=== PATIENT | female | born 1990 | race Hispanic/Latino ===

== ENCOUNTER 2018-11-29 21:54 | Emergency (ER) | payer SELFPAY ==
[2018-11-29 22:25] VITALS: O2SAT 100
--- NOTE | 2018-11-29 22:48 | C.PDOC ---
History Of Present Illness 28 year old female presents to the ED c/o headache associated with nausea, vomit and neck pain for the past 2 days. Patient states she sustained a mechanical fall, she was in a store slipped and fell backwards hitting her head on the ground. Patient thinks she had LOC, but there was nit witness of her fall. Patient states she was able to get up with no help, reports she vomited shortly after. Patient states she has bee vomiting for the past 2 days, headache worsened today. Patient also reports some neck pain with flexion and extension. Patient denies visual changes, diarrhea, abdominal pain, rash, weakness, numbness. - HPI Time Seen by Provider: 11/29/18 22:33 Chief Complaint (Nursing): Trauma History Per: Patient History/Exam Limitations: no limitations Onset/Duration Of Symptoms: Days (2) Injury Occurred (Timing): Days Ago: (2) Location Of Injury: Posterior: Head, Neck Associated Symptoms: LOC (questionable ) Recent travel outside of the [place]: No Additional History Per: Patient - Fall Fall:Prior To Injury: Slipped Past Medical History Reviewed: Historical Data, Nursing Documentation, Vital Signs Vital Signs: Last Vital Signs Temp 98.7 F 11/29/18 22:22 Pulse 71 11/29/18 22:22 Resp 18 11/29/18 22:22 BP 118/75 11/29/18 22:22 Pulse Ox 100 11/29/18 22:22 - Medical History PMH: No Chronic Diseases Surgical History: No Surg Hx Family History: States: Unknown Family Hx - Social History Hx Alcohol Use: Yes Hx Substance Use: No - Immunization History Hx Tetanus Toxoid Vaccination: No Hx Influenza Vaccination: No Hx Pneumococcal Vaccination: No Review Of Systems Constitutional: Negative for: Fever, Chills Eyes: Negative for: Vision Change Cardiovascular: Negative for: Chest Pain, Palpitations Respiratory: Negative for: Shortness of Breath Gastrointestinal: Positive for: Nausea, Vomiting. Negative for: Abdominal Pain Musculoskeletal: Positive for: Neck Pain Skin: Negative for: Rash Neurological: Positive for: Headache. Negative for: Weakness, Numbness, Dizziness Physical Exam - Physical Exam Appears: Non-toxic, No Acute Distress Skin: Normal Color, Warm, Dry Head: Atraumatic, Normacephalic, Other (no palpable deformity of the skull) Eye(s): bilateral: Normal Inspection, PERRL, EOMI Oral Mucosa: Moist Neck: Normal ROM, No Midline Cervical Tenderness, Paracervical Tenderness, Supple Chest: Symmetrical Cardiovascular: Rhythm Regular Respiratory: Normal Breath Sounds, No Rales, No Rhonchi, No Wheezing Gastrointestinal/Abdominal: Soft, No Tenderness, No Guarding, No Rebound Back: No Vertebral Tenderness Extremity: Normal ROM, No Tenderness, No Swelling Neurological/Psych: Oriented x3, Normal Speech, Normal Cognition, Normal Cranial Nerves Gait: Steady ED Course And Treatment O2 Sat by Pulse Oximetry: 100 (ON RA) Pulse Ox Interpretation: Normal - CT Scan/US CT head Other Rad Studies (CT/US): Read By Radiologist, Radiology Report Reviewed CT/US Interpretation: EXAM: CT Head without Intravenous Contrast. CLINICAL HISTORY: Trauma. TECHNIQUE: Axial computed tomography images of the head/brain without intravenous contrast. 0.00 mGy-cm. COMPARISON: None provided. FINDINGS: BRAIN. No acute intraparenchymal hemorrhage. No mass lesion. No CT evidence for acute territorial infarct. No midline shift or extra- axial collections. VENTRICLES: No hydrocephalus. ORBITS: The orbits are unremarkable. SINUSES AND MASTOIDS: The paranasal sinuses and mastoid air cells are clear. BONES: No fracture. SOFT TISSUES: Unremarkable. IMPRESSION: No acute intracranial abnormality. . Electronically signed on Nov 30, 2018 12:17:34 AM EDT by: Juve Gomez M.D., Certified by LISA QURESHI, Neuroradiology. CT c-spine Other Rad Studies (CT/US): Read By Radiologist, Radiology Report Reviewed CT/US Interpretation: EXAM: CT Cervical Spine Without IV contrast. CLINICAL HISTORY: Trauma. TECHNIQUE: Axial computed tomography images of the cervical spine without intravenous contrast. Sagittal and coronal reformatted images were generated. COMPARISON: None provided. FINDINGS: ALIGNMENT: Bony alignment is anatomic. DEGENERATIVE CHANGES: No significant canal stenosis or neural foraminal narrowing evident. SOFT TISSUES: The prevertebral soft tissues are within normal limits. BONES: No acute fracture or aggressive appearing osseous lesion. IMPRESSION: No acute cervical spine abnormality. . Electronically signed on Nov 30, 2018 12:17:41 AM EDT by: Juve Gomez M.D., Certified by KIERA MSVira, Neuroradiology Medical Decision Making Medical Decision Making: Impression: Work up for head and neck trauma. Plan: * CT head * CT C-spine * Zofran 4 mg IVP * Labs 00:44- Patient reports improvement after medications were given. Patient was advised to follow up with Neurologist in one week if symptoms have not improved. Return precautions were discussed, advised to take Tylenol or Motrin for pain relief. Patient was also given prescription for Zofran. Disposition - Disposition Referrals: Bharat Cheung MD [Staff Provider] - Disposition: HOME/ ROUTINE Disposition Time: 00:43 Condition: IMPROVED Prescriptions: Ondansetron ODT [Zofran ODT] 4 mg PO Q6 #20 odt Instructions: Concussion, Adult (DC), Head Injury Observation (DC) Forms: [employer] (Andorran) Print Language: [place] CITIZEN - Clinical Impression Clinical Impression: Concussion injury of brain - Scribe Statement The provider has reviewed the documentation as recorded by the Scribe Jesse Campbell All medical record entries made by the Scribe were at my direction and pers onally dictated by me. I have reviewed the chart and agree that the record accurately reflects my personal performance of the history, physical exam, medical decision making, and the department course for this patient. I have also personally directed, reviewed, and agree with the discharge instructions and disposition.
[2018-11-30 00:35] VITALS: BP 114/74; PULSE 66; RESP 17; TEMP 98.6
--- NOTE | 2018-11-30 07:54 | CT ---
Date of service: 11/29/2018 PROCEDURE: CT HEAD WITHOUT CONTRAST. HISTORY: head trauma COMPARISON: None available. TECHNIQUE: Axial computed tomography images were obtained through the head/brain without intravenous contrast. Radiation dose: Total exam DLP = 1045.49 mGy-cm. This CT exam was performed using one or more of the following dose reduction techniques: Automated exposure control, adjustment of the mA and/or kV according to patient size, and/or use of iterative reconstruction technique. FINDINGS: HEMORRHAGE: No intracranial hemorrhage. BRAIN: No mass effect or edema. No atrophy or chronic microvascular ischemic changes. VENTRICLES: Unremarkable. No hydrocephalus. CALVARIUM: Unremarkable. PARANASAL SINUSES: Unremarkable as visualized. No significant inflammatory changes. MASTOID AIR CELLS: Unremarkable as visualized. No inflammatory changes. OTHER FINDINGS: None. IMPRESSION: No acute intracranial abnormality. If symptoms persists, consider correlation with MRI. A preliminary report was generated at 12:17 a.m. on 11/30/[address] Juve Gomez from [employer].
--- NOTE | 2018-11-30 10:08 | CT ---
Date of service: 11/29/2018 PROCEDURE: CT Cervical Spine without contrast HISTORY: head trauma with pain COMPARISON: None available. TECHNIQUE: Axial computed tomography images were obtained of the cervical spine without the use of intravenous contrast. Coronal and sagittal reformatted images were created and reviewed. Radiation dose: Total exam DLP = 554.45 mGy-cm. This CT exam was performed using one or more of the following dose reduction techniques: Automated exposure control, adjustment of the mA and/or kV according to patient size, and/or use of iterative reconstruction technique. FINDINGS: VERTEBRAE: There is normal alignment of the cervical vertebral bodies. There is loss of normal cervical lordosis. Vertebral height is normal. Bone mineralization is normal. There is no acute fracture or traumatic anterior listhesis. The craniocervical junction is normal. The atlantoaxial joint normal. DISCS/SPINAL CANAL/NEURAL FORAMINA: No significant central canal or neural foraminal stenosis. Discs heights are grossly preserved. PARASPINAL SOFT TISSUES: Unremarkable. OTHER FINDINGS: None. IMPRESSION: No acute fracture or traumatic anterior listhesis. Straightening of the cervical spine may be positional or related to muscle spasm. A preliminary report was provided by [employer].
== END 2018-11-30 00:48 | disposition home or self-care (01) ==
LOC: C.ER 21:54
DX: S06.0X0A Concussion without loss of consciousness, initial encounter (principal); W01.0XXA Fall on same level from slipping, tripping and stumbling without subsequent striking against object, initial encounter; Y92.512 Supermarket, store or market as the place of occurrence of the external cause